=== PATIENT | female | born 1980 | race Caucasian/White ===

== ENCOUNTER 2021-02-26 12:15 | Emergency (ER) | payer OTHER ==
[~2021-02-26] VITALS: Ht 167.6 cm; Wt 73.6 kg
[2021-02-26] MEDS ORDERED: MULTTAB20 PO (12:21)
[2021-02-26 14:43] LABS: HEMATOCRIT 40.4 % (36.0-47.0); HEMOGLOBIN 13.7 g/dl (12.0-15.5); MEAN CORPUSCULAR HEMOGLOBIN 29.5 pg (27.0-33.0); MEAN CORPUSCULAR HGB CONC 33.9 g/dl (32.0-36.5); MEAN CORPUSCULAR VOLUME 86.9 fl (80.0-96.0); PLATELET COUNT, AUTOMATED 184 10^3/uL (150-450); RED BLOOD COUNT 4.65 10^6/uL (4.00-5.40); WHITE BLOOD COUNT 6.5 10^3/uL (4.0-10.0)
--- NOTE | 2021-02-26 15:51 | REP ---
INDICATION: spotting, 5 weeks preg. COMPARISON: None. TECHNIQUE: Transvesical and transvaginal imaging FINDINGS: The uterus measures 8.2 x 4.8 x 5.8 cm. The endometrial echo complex is heterogenous and thickened but no measurement was obtained as it is poorly delineated. There is no evidence of an intrauterine gestational sac. Right ovary measures 3.1 x 2.3 x 2.3 cm. Within the right ovary there is a hypoechoic region poorly imaged but having no internal blood flow on Doppler. This measures approximately 1.4 x 1.6 x 1.7 cm. The right ovarian RI is 0.55 Left ovary measures 2.6 x 2.2 x 2.7 cm and is within normal limits with an RI 0.59 IMPRESSION: There is no evidence of an intrauterine . Possible decompressing dominant right ovarian follicle as described above, however, follow-up is recommended. It is unlikely that the finding in the right adnexa represents a tubal ring sign but it cannot be completely ruled out. <Electronically signed by Rob Ulloa > 02/26/21 [id number]
[2021-02-26 16:47] VITALS: BP 125/77
--- NOTE | 2021-02-27 10:23 | ED PDOC ---
Post-Departure Follow-Up radiology report faxed to bran Anaya Sarah MD Feb 27, 2021 10:23
== END 2021-02-26 16:52 | disposition home or self-care (01) ==
LOC: M ED 12:15
DX: O20.0 Threatened abortion (principal); O26.891 Other specified pregnancy related conditions, first trimester; O20.8 Other hemorrhage in early pregnancy; Z32.01 Encounter for pregnancy test, result positive; O09.521 Supervision of elderly multigravida, first trimester

== ENCOUNTER → 2021-02-28 | Outpatient (CLI) | payer OTHER ==
[~2021-02-28] MED LIST: MULTTAB20 PO
== END ==
LOC: M LAB 08:51
PROVIDERS: ATTEND Physician Assistant
DX: O03.9 Complete or unspecified spontaneous abortion without complication (principal)

== ENCOUNTER 2021-03-01 10:13 | Emergency (ER) | payer OTHER ==
[~2021-03-01] VITALS: Ht 167.6 cm; Wt 73.1 kg
[2021-03-01 11:26] LABS: BASO % 0.2 % (0.0-1.0); EOS # 0.1 10^3/uL (0.0-0.5); EOS % 0.9 % (0.0-3.0); HEMATOCRIT 38.4 % (36.0-47.0); HEMOGLOBIN 12.8 g/dl (12.0-15.5); LYMPH # 1.5 10^3/uL (1.5-5.0); LYMPH % 27.7 % (24.0-44.0); MEAN CORPUSCULAR HGB CONC 33.3 g/dl (32.0-36.5); MEAN CORPUSCULAR VOLUME 87.1 fl (80.0-96.0); MONO # 0.5 10^3/uL (0.0-0.8); MONO % 8.8 % (2.0-8.0); NEUTROPHILS # 3.4 10^3/uL (1.5-8.5); NEUTROPHILS % 62.2 % (36.0-66.0); PLATELET COUNT, AUTOMATED 168 10^3/uL (150-450); RED BLOOD COUNT 4.41 10^6/uL (4.00-5.40); WHITE BLOOD COUNT 5.5 10^3/uL (4.0-10.0)
[2021-03-01 11:54] LABS: BLOOD UREA NITROGEN 23 MG/DL (7-18); CALCIUM LEVEL 8.9 MG/DL (8.5-10.1); CARBON DIOXIDE LEVEL 29 MEQ/L (21-32); CHLORIDE LEVEL 109 MEQ/L (98-107); CREATININE FOR GFR 0.93 MG/DL (0.55-1.30); GLOMERULAR FILTRATION RATE > 60.0 (>60); GLUCOSE, FASTING 96 MG/DL (70-100); HCG, SERUM QUANTITATIVE 19 MIU/ML; POTASSIUM SERUM 4.4 MEQ/L (3.5-5.1); SODIUM LEVEL 142 MEQ/L (136-145)
--- NOTE | 2021-03-01 12:53 | REP ---
INDICATION: miscarriage, vag bleeding, pelvic cramping. COMPARISON: Comparison sonography February 26, 2021. TECHNIQUE: And transvaginal and transabdominal scanning are performed. FINDINGS: Uterine dimensions are 9.8 x 5.0 x 5.4 cm. Endometrial echo is 1.0 cm thick. No intrauterine gestational sac or embryonic pole is seen. No yolk sac is seen. There is no evidence of free fluid in the cul-de-sac. The right ovary measures 2.1 x 1.8 x 2.7 cm. It is Doppler flow is normal resistive index 0.56. There is a 1.2 x 1.5 x 0.8 cm hypoechoic cyst in the right ovary. This is similar to the previous study. Left ovary measures 2.1 x 1.6 x 2.2 cm. It is morphologically normal. Its resistive index by Doppler is normal 0.65. IMPRESSION: Mildly enlarged empty uterus. No adnexal mass or free fluid. Nonspecific findings. No intrauterine gestation seen. <Electronically signed by Rich Kaur > 03/01/21 [id number]
[2021-03-01 13:34] VITALS: BP 124/78
== END 2021-03-01 13:36 | disposition home or self-care (01) ==
LOC: M ED 10:13
DX: O03.9 Complete or unspecified spontaneous abortion without complication (principal); Z32.01 Encounter for pregnancy test, result positive; O09.529 Supervision of elderly multigravida, unspecified trimester; N85.2 Hypertrophy of uterus

== ENCOUNTER → 2024-02-03 | Outpatient (CLI) | payer OTHER | LOC: M WHC 10:23 | PROVIDERS: ATTEND Nurse Practitioner Primary Care | DX: Z12.31 Encounter for screening mammogram for malignant neoplasm of breast (principal) ==

== ENCOUNTER → 2024-02-24 | Outpatient (CLI) | payer OTHER | LOC: M WHC 10:31 | PROVIDERS: ATTEND Nurse Practitioner Primary Care | DX: Z12.31 Encounter for screening mammogram for malignant neoplasm of breast (principal) ==

== ENCOUNTER → 2025-05-04 | Outpatient (CLI) | payer OTHER | LOC: M PLALAB 11:11 | PROVIDERS: ATTEND Nurse Practitioner Adult Health | DX: E55.9 Vitamin D deficiency, unspecified (principal) ==

== ENCOUNTER → 2025-05-04 | Outpatient (CLI) | payer OTHER | LOC: M WHC 09:43 | PROVIDERS: ATTEND Nurse Practitioner Adult Health | DX: Z12.31 Encounter for screening mammogram for malignant neoplasm of breast (principal) ==